=== PATIENT | female | born 1940 | race Caucasian/White ===

== ENCOUNTER 2019-09-11 08:14 | Outpatient (CLI) | payer MEDICARE, SELFPAY ==
--- NOTE | ~2019-09-11 | MM_ITS ---
EXAMINATION: MM screening dunia BI w daylin HISTORY: Screening mammogram TECHNIQUE: Craniocaudal and mediolateral oblique 3-D tomosynthesis images were obtained and synthetic 2-D images were generated. CAD analysis was submitted and interpreted. COMPARISON: A a the 08/25/2018, 08/19/2017, 08/15/2016 bilateral digital screening mammogram examination s BREAST PARENCHYMAL COMPOSITION: There are scattered areas of fibroglandular density. FINDINGS: .. There is no evidence of suspicious mass, calcification, or architectural distortion to s uggest malignancy in either breast. There has been no suspicious interval change. IMPRESSION: 1. No mammographic evidence of malignancy. 2. Recommend routine screening mammography in one year. BI-RADS Category 1: Negative Reviewed, dictated and finalized at location A.
== END 2019-09-11 08:15 | disposition home or self-care (01) ==
PROVIDERS: PCP Family Medicine; Visit Provider Student in an Organized Health Care Education/Training Program
DX: Z12.31 Encounter for screening mammogram for malignant neoplasm of breast (principal)
CPT/HCPCS: 77063; 77067

== ENCOUNTER 2020-09-13 09:25 | Outpatient (CLI) | payer MEDICARE, SELFPAY ==
--- NOTE | ~2020-09-13 | MM_ITS ---
EXAMINATION: MM screening dunia BI w daylin HISTORY: Screening mammogram TECHNIQUE: Craniocaudal and mediolateral oblique 3-D tomosynthesis images were obtained and synthetic 2-D images were generated. CAD analysis was submitted and interpreted. COMPARISON: 09/23/2019, 08/25/2018, 08/19/2017 bilateral digital screening mammogram examinations BREAST PARENCHYMAL COMPOSITION: There are scattered areas of fibroglandular density. FINDINGS: There is no evidence of suspicious mass, calcification, or architectural distortion to sugg est malignancy in either breast. There has been no suspicious interval change. IMPRESSION: 1. No mammographic evidence of malignancy. 2. Recommend routine screening mammography in one year. BI-RADS Category 1: Negative Reviewed, dictated and finalized at location A.
== END 2020-09-13 09:26 | disposition home or self-care (01) ==
LOC: ANHIMG 09:32
PROVIDERS: PCP Family Medicine; Visit Provider Student in an Organized Health Care Education/Training Program
DX: Z12.31 Encounter for screening mammogram for malignant neoplasm of breast (principal)
CPT/HCPCS: 77063; 77067

== ENCOUNTER → 2020-10-10 13:12 | Outpatient (CLI) | payer MEDICARE, SELFPAY ==
--- NOTE | ~2020-10-10 | XR_ITS ---
EXAMINATION: XR shoulder LT min 2V DATE: 10/10/2020 14:24 INDICATION: Left shoulder pain. TECHNIQUE: 4 views of left shoulder were obtained. COMPARISON: None. FINDINGS: Bone alignment is normal. No fracture. There is mild osteoarthritis of glenohumeral joint a nd severe osteoarthritis of acromioclavicular joint. IMPRESSION: 1. Polyarticular osteoarthritis. Reviewed, dictated and finalized at location A.
== END ==
PROVIDERS: PCP Family Medicine; Visit Provider Family Medicine
DX: M25.511 Pain in right shoulder (principal); M19.012 Primary osteoarthritis, left shoulder
CPT/HCPCS: 73030

== ENCOUNTER → 2020-12-15 11:44 | Outpatient (CLI) | payer MEDICARE, SELFPAY ==
--- NOTE | ~2020-12-15 | XR_ITS ---
XR hip LT min 3V w AP pelvis DATE: 12/15/2020 12:10 INDICATION: Left hip pain TECHNIQUE: AP pelvis. AP and lateral views of left hip. COMPARISON: None FINDINGS: Diffuse osteopenia. No pelvic fracture or bone destruction is detected. The pubic symphysis and sacroiliac joints are intact. No fracture, dislocation, avascular necrosis or bone destruction of the left hip is detected. Prominent degenerative disc disease at L4-5 and L5-S1. IMPRESSION: Degenerative disc disease at L4-5 and L5-S1 Osteopenia Reviewed, dictated and finalized at location A.
== END ==
PROVIDERS: PCP Family Medicine; Visit Provider Physician Assistant
DX: M85.852 Other specified disorders of bone density and structure, left thigh (principal); M47.817 Spondylosis without myelopathy or radiculopathy, lumbosacral region
CPT/HCPCS: 73502

== ENCOUNTER 2021-01-05 11:54 | Outpatient (CLI) | payer MEDICARE, SELFPAY ==
--- NOTE | ~2021-01-05 | XR_ITS ---
EXAMINATION: XR ankle LT min 3V, XR tibia fibula LT 2V DATE: 01/05/2021 12:22 INDICATION: Left lower leg and ankle pain and bruising post fall TECHNIQUE: 1. Anteroposterior and lateral views of the left tibia and fibula were obtained. 2. Anteroposterior, oblique, mortise, and lateral views of the left ankle were obtained. COMPARISON: None. FINDINGS: Alignment is normal from the left knee through the left foot. No fracture. Peripheral joint spaces ap pear relatively preserved. There is some cortical irregularity along the articular surface of the pat lenny suggesting overlying high-grade chondromalacia. Moderate-sized Achilles and plantar calcaneal sp urs with small enthesophyte at the proximal pole of the patella. No left knee or ankle joint effusion . Mild soft tissue swelling about the medial aspect of the distal calf and medial malleolus. IMPRESSION: 1. No acute osseous abnormality at the left lower leg, foot or ankle. Reviewed, dictated and finalized at location A. IMPRESSION: 1. No acute osseous abnormality at the left lower leg, foot or ankle.
== END 2021-01-05 11:55 | disposition home or self-care (01) ==
LOC: ANHIMG 11:56
PROVIDERS: PCP Family Medicine; Visit Provider Physician Assistant
DX: M79.605 Pain in left leg (principal); Z91.81 History of falling
CPT/HCPCS: 73590; 73610

== ENCOUNTER 2021-01-23 12:51 | Outpatient (CLI) | payer MEDICARE, SELFPAY ==
--- NOTE | 2021-01-23 17:03 | WPDPFTINT ---
PFT Procedure Performed PFT Procedure Performed Plethysmography (Lung Vol) Diffusing Cap (DLCO) Flow Vol Loop Spirometry w/o Bronchodil PFT Interpretation This is a pulmonary function test with spirometry, plethysmography and diffusing capacity. The test was performed and results interpreted in accordance with the 2019 and 2005 ATS/ERS Task Force guidelines respectively using the Global Lung Function Initiative-2012 reference equations. Patient demonstrated good effort and cooperation. Reproducibility criteria were met. The quality of the spirometry maneuver was Grade A. Findings: Spirometry: There is decreased maximal expiratory airflow at low lung volumes with concave expiratory flow tracing. The contour of the inspiratory tracing is normal. The FVC is 1.94, 74% predicted. The FEV1 is 1.33 L, 67% predicted. The FEV1: FVC ratio 69%. Plethysmography: The total lung capacity is 4.45 L 8, 88% predicted. The functional residual capacity is 2.81 L, 96% predicted. The residual volume is 2.29 L, 97% predicted. Diffusing capacity: The absolute diffusion capacity is 13.3, 68 point % predicted. The diffusing capacity corrected for alveolar volume is 4.09, 98% predicted. Impression: There is a mild obstructive abnormality. The lung volumes are normal. The diffusing capacity is normal. There are no prior studies for comparison
== END 2021-01-23 12:52 | disposition home or self-care (01) ==
PROVIDERS: PCP Family Medicine; Visit Provider Specialist
DX: I48.0 Paroxysmal atrial fibrillation (principal)
CPT/HCPCS: 94375; 94726; 94729

== ENCOUNTER 2021-02-14 12:47 | Outpatient (CLI) | payer MEDICARE, SELFPAY ==
--- NOTE | ~2021-02-14 | DEXA_ITS ---
Bone Density Report Name: Kala Multani Age: 80 Sex: Female Ethnicity: White Date of : 1940 Indication: osteopenia; height loss; hysterectomy;potmenopausal Referring Provider: Gurdeep Franklin Study: Bone densitometry was performed. Exam Date: February 14, 2021 Accession number: [id number] Bone Density: Region BMD T-score Z-score Classification AP Spine (L1, L2, L3) 0.813 -1.9 0.7 Osteopenia Femoral Neck (Left) 0.696 -1.4 0.8 Osteopenia Total Hip (Left) 0.865 -0.6 1.3 Normal Total Hip Bilateral Avg 0.826 -1.0 1.0 Osteopenia Femoral Neck (Right) 0.707 -1.3 0.9 Osteopenia Total Hip (Right) 0.785 -1.3 0.7 Osteopenia World Health Organization criteria for BMD impression classify patients as: Normal (T-score at or above -1.0), Osteopenia (T-score between -1.0 and -2.5), or Osteoporosis (T-score at or below -2.5). 10-year Fracture Risk(1): Major Osteoporotic Fracture 12% Hip Fracture 2.6% Reported Risk Factors: [place] (), Neck BMD=0.696, BMI=28.3 (1) FRAX(R) Version 3.08. Fracture probability calculated for an untreated patient. Fracture probability may be lower if the patient has received treatment. Previous Exams: Region Exam Age BMD T-score BMD Change BMD Change Date g/cm2 vs Baseline vs Previous AP Spine(L1, L2, L3) 02/14/2021 80 0.813 -1.9 -0.025(-3.0%)# 0.044(5.7%)* 10/21/2017 76 0.769 -2.3 -0.069(-8.3%)# 0.000(0.0%) 10/19/2014 73 0.769 -2.3 -0.069(-8.3%)# 0.000(0.0%)# 06/25/2012 71 0.770 -2.3 -0.069(-8.2%)# -0.019(-2.5%)# 03/09/2010 69 0.789 -2.1 -0.050(-5.9%)* -0.055(-6.5%)* 03/04/2008 67 0.844 -1.6 0.005(0.6%) 0.075(9.7%)* 01/04/2006 65 0.769 -2.3 -0.070(-8.3%)* 0.002(0.3%) 10/19/2004 63 0.766 -2.3 -0.072(-8.6%)* -0.072(-8.6%)* 11/02/2002 61 0.839 -1.6 Total Hip(Left) 02/14/2021 80 0.865 -0.6 -0.052(-5.7%)# -0.022(-2.5%) 10/21/2017 76 0.888 -0.4 -0.030(-3.3%)# -0.026(-2.8%) 10/19/2014 73 0.914 -0.2 -0.004(-0.4%)# -0.005(-0.5%)# 06/25/2012 71 0.918 -0.2 0.001(0.1%)# -0.010(-1.1%)# 03/09/2010 69 0.928 -0.1 0.011(1.2%) -0.002(-0.3%) 03/04/2008 67 0.931 -0.1 0.013(1.4%) -0.027(-2.8%)* 01/04/2006 65 0.958 0.1 0.040(4.4%)* 0.012(1.3%) 10/19/2004 63 0.946 0.0 0.028(3.1%)* 0.028(3.1%)* 11/02/2002 61 0.918 -0.2 Total Hip(Right) 02/14/2021 80 0.785 -1.3 -0.127(-13.9%) -0.051(-6.1%)* 10/21/2017 76 0.836 -0.9 -0.076(-8.3%)# -0.014(-1.7%) 10/19/2014 73 0.850 -0.8 -0.061(-6.7%)# -0.043(-4.8%)# 06/25/2012 71 0.893 -0.4 -0.018(-2.0%)# -0.007(-0.8%)# 11
== END 2021-02-14 12:48 | disposition home or self-care (01) ==
LOC: ANHIMG 12:51
PROVIDERS: PCP Family Medicine; Visit Provider Physician Assistant
DX: M85.89 Other specified disorders of bone density and structure, multiple sites (principal)
CPT/HCPCS: 77080

== ENCOUNTER 2021-02-14 15:08 | Outpatient (RCR) | payer MEDICARE, SELFPAY ==
--- NOTE | 2021-02-14 16:19 | PTOPEVAL ---
PHYSICAL THERAPY EVALUATION/ DISCHARGE REPORT 02-14-21 Thank you for referring Kala Multani to [facility]. The evaluation was completed today. She was instructed and is independent in a home exercise program. Further PT is not indicated for pt. Jacque agreed to discharge from PT services. ?Please review, sign, date and return this evaluation/ discharge SERVANDO. I agree with and certify that the following plan of care is medically necessary. Referring Physician Date Attending Provider: Gurdeep Franklin PA-C PT Outpatient Evaluation Document 02/14/21 15:30 TSERING (Rec: 02/14/21 16:19 TSERING [id number]) Outpatient Past Medical History Past Medical History Source of Past Medical History Patient Neurological History Hx Neurological Disorders No Significant History Cardiovascular History Hx Hypercholesterolemia Yes: meds Hx Hypertension Yes: meds Respiratory History Hx Respiratory Disorders No Significant History Gastrointestinal History Hx Gastrointestinal Disorders No Significant History Musculoskeletal History Hx Musculoskeletal Disorders No Significant History Endocrine History Hx Endocrine Disorders No Significant History HEENT History Hx Cataracts Yes: monitoring, some vision change Hx Other HEENT Disorders Yes: wear glasses/last eye exam 1 yr ago;report hearing decreased Evaluation Information Problem Diagnosis gait instability, falls, L LE pain Onset about 6 months ago Subjective Information in the past 6 months have Query Text:As Reported By Patient/ fallen 3x- tripped over rug Family and on way to bathroom, hit L shoulder; at son's pushing chair under table, caught rug and fell onto L hip; fell down stairs and banged up L hartmann, bruised and hematoma; Prior Level of Function Activity Level (Last 3 Months) Occupation retired Activity of Daily Living Ability Independent Indoor/Home Mobility Independent Community Mobility Independent Stairs Ability Independent Functional Cognition (Planning, Shopping Independent , Taking Medications) Cooking Yes Cleaning Yes Laundry Yes Shopping Yes Driving Yes Home Setting Home Type House,Multiple Levels Environmental Barriers Stairs, Greater than 4 Living Situation With Spouse Mobility Assistive Devices (Used Last 3 None Months)
== END 2021-05-01 10:31 | disposition home or self-care (01) ==
LOC: ANHPT 15:08
PROVIDERS: PCP Family Medicine; Visit Provider Physician Assistant
DX: R26.89 Other abnormalities of gait and mobility (principal); M79.605 Pain in left leg; W19.XXXA Unspecified fall, initial encounter
CPT/HCPCS: 97161

== ENCOUNTER 2021-12-09 07:31 | Outpatient (CLI) | payer MEDICARE, SELFPAY ==
--- NOTE | ~2021-12-09 | MM_ITS ---
EXAMINATION: MM screening dunia BI w daylin HISTORY: Screening mammogram, family history of breast cancer in her mother and daughter. TECHNIQUE: Craniocaudal and mediolateral oblique 3-D tomosynthesis images were obtained and synthetic 2-D images were generated. CAD analysis was submitted and interpreted. COMPARISON: 09/13/2020, 09/11/2019 BREAST PARENCHYMAL COMPOSITION: The breasts are heterogeneously dense, which may obscure small masses . FINDINGS: There is no suspicious mass, calcification, or architectural distortion to suggest malignan cy in either breast. There has been no suspicious interval change. IMPRESSION: 1. No mammographic evidence of malignancy. 2. Recommend routine screening mammography in one year. BI-RADS Category 1: Negative Reviewed, dictated and finalized at location A.
== END 2021-12-09 07:32 | disposition home or self-care (01) ==
PROVIDERS: PCP Family Medicine; Visit Provider Family Medicine
DX: Z12.31 Encounter for screening mammogram for malignant neoplasm of breast (principal)
CPT/HCPCS: 77063; 77067

== ENCOUNTER 2022-09-05 11:04 | Outpatient (CLI) | payer MEDICARE, SELFPAY ==
[2022-09-05 12:26] LABS: SARS-CoV-2 RNA PCR Negative (Negative)
== END 2022-09-05 11:05 | disposition home or self-care (01) ==
PROVIDERS: PCP Family Medicine; Visit Provider Physician Assistant
DX: R05.9 Cough, unspecified (principal); Z20.822 Contact with and (suspected) exposure to COVID-19
CPT/HCPCS: U0003; U0005

== ENCOUNTER 2022-11-05 14:05 | Outpatient (CLI) | payer MEDICARE, SELFPAY ==
[2022-11-05 15:28] LABS: SARS-CoV-2 RNA PCR Negative (Negative)
== END 2022-11-05 14:06 | disposition home or self-care (01) ==
LOC: ANHLAB 14:07
PROVIDERS: PCP Family Medicine; Visit Provider Physician Assistant
DX: R50.9 Fever, unspecified (principal); Z20.822 Contact with and (suspected) exposure to COVID-19
CPT/HCPCS: 87635

== ENCOUNTER 2022-11-07 10:52 | Outpatient (CLI) | payer MEDICARE, SELFPAY ==
--- NOTE | ~2022-11-07 | XR_ITS ---
EXAMINATION: XR chest 2V DATE: 11/07/2022 12:13 INDICATION: Cough and shortness of breath. Wheezing. TECHNIQUE: Frontal and lateral views of the chest were obtained. COMPARISON: Chest 2 views 12/10/2018, chest CT 12/10/2018 FINDINGS: There are airspace opacities in right lung upper lobe, consistent with pneumonia. There is a small right pleural effusion. No pneumothorax. The heart size is normal. IMPRESSION: 1. Right upper lobe pneumonia. 2. Small right pleural effusion. Reviewed, dictated and finalized at location A.
[2022-11-07 11:50] LABS: Basophils Percent Auto 0.3 % (0.2-1.2); Eosinophils Percent Auto 0.5 % (0-4.4); Hematocrit 43.8 % (37.0-47.0); Hemoglobin 14.5 g/dL (12.0-15.0); Immature Granulocyte Absolute 0.04 K/mm3 (0.00-0.031); Immature Granulocyte Percent A 0.5 % (0-0.5); Lymphocytes Absolute Auto 0.72 K/mm3 (0.9-3.2); Lymphocytes Percent Auto 9.3 % (18.3-44.2); Mean Corpuscular HGB Conc 33.1 g/dl (32-36); Mean Corpuscular Volume 93.6 fl (80-100); Mean Platelet Volume 9.5 fl (7.4-10.4); Monocytes Absolute Auto 1.3 K/mm3 (0.1-0.6); Monocytes Percent Auto 16.5 % (2.6-8.5); Neutrophils Absolute Auto 5.6 K/mm3 (1.3-6.7); Neutrophils Percent Auto 72.9 % (45.5-73.1); Platelet Count Result 245 k/mm3 (150-375); Red Blood Count 4.68 M/mm3 (4.2-5.4); Red Cell Distribution Width 13.9 % (11.5-14.5); White Blood Count 7.7 K/mm3 (4.5-10.0)
[2022-11-07 11:52] LABS: Alanine Aminotransferase 76 U/L (6-35); Albumin Level 3.8 g/dL (3.5-5.1); Alkaline Phosphatase 77 U/L (38-126); Anion Gap 6 mmol/L (8-16); Aspartate Amino Transferase 71 U/L (14-36); Bilirubin,Total 0.8 mg/dL (0.2-1.3); Blood Urea Nitrogen 25 mg/dL (7-17); Calcium 8.9 mg/dL (8.4-10.2); Carbon Dioxide 34 mmol/L (22-30); Chloride 94 mmol/L (98-107); Estimated Glomerular Filt Rate 33; Glucose 128 mg/dL (65-110); Potassium 3.3 mmol/L (3.4-5.0); Sodium 134 mmol/L (137-145)
[2022-11-07 13:03] LABS: Appearance Urine Clear (Clear); Bacteria Urine None Seen /hpf; Bilirubin Urine Negative (Negative); Blood Urine 1+ (Negative); Color Urine Yellow (Yellow); Glucose Urine UA Negative (Negative); Ketones Urine Negative (Negative); Leukocyte Esterase Ur 1+ LEU/UL (NEGATIVE); Need Manual Microscopic Reviewed; Nitrate Urine Negative (Negative); Protein Urine Trace mg/dL (Negative); Specific Grav Ur 1.014 (1.001-1.035); Squamous Epithelial Cell Urine Few /hpf (Few); Transitional Epi Cells Urine Present /hpf (None Seen); Urobilinogen Urine 0.2 mg/dL (<2.0); WBC Urine 0-5 /hpf (0-3)
[2022-11-07 13:08] LABS: Add Urine Microscopic? YES
== END 2022-11-07 10:53 | disposition home or self-care (01) ==
PROVIDERS: PCP Family Medicine; Visit Provider Family Medicine
DX: R50.9 Fever, unspecified (principal); R05.9 Cough, unspecified; J18.9 Pneumonia, unspecified organism; J90 Pleural effusion, not elsewhere classified
CPT/HCPCS: 36415; 71046; 80053; 81001; 85025

== ENCOUNTER → 2022-12-12 09:49 | Outpatient (CLI) | payer MEDICARE, SELFPAY ==
--- NOTE | ~2022-12-12 | XR_ITS ---
Clinical Indication: Cough PA and lateral views of the chest: Comparison: 11/07/2022 Findings: The lungs are clear, without evidence of focal consolidation or pleural effusion. Cardiome diastinal silhouette is within normal limits. Bones and soft tissues are unremarkable. Impression: Normal chest. Reviewed, dictated and finalized at location . Impression: Normal chest.
== END ==
PROVIDERS: PCP Family Medicine; Visit Provider Family Medicine
DX: R05.9 Cough, unspecified (principal)
CPT/HCPCS: 71046

== ENCOUNTER 2022-12-20 09:40 | Outpatient (CLI) | payer MEDICARE, SELFPAY ==
--- NOTE | ~2022-12-20 | XR_ITS ---
EXAMINATION: XR barium swallow modified DATE: 12/20/2022 10:16 INDICATION: Coughing and choking. TECHNIQUE: The patient was given barium-containing material of multiple consistencies to swallow by t phyllis speech pathologist while I performed fluoroscopy. Fluoroscopy exposure time was 0.6 minutes. The n umber of fluoroscopy images saved to the PACS was 1. Dose-area product was 0.412 Gy-cm^2. FINDINGS: The oral stage, pharyngeal stage, and cervical/esophageal stage of the swallow are normal. IMPRESSION: 1. Normal modified barium swallow. 2. Please refer to the speech therapy report for recommendations. Reviewed, dictated and finalized at location A.
--- NOTE | 2022-12-20 10:35 | REHSTMBS ---
Assessment and note entered by Hannah Damon, STOCK DIGGER Modified Barium Swallow Evaluation ST Clinical Summary MODIFIED BARIUM SWALLOW STUDY This patient was seen for a Modified Barium Swallow study at the request of her physician. Patient reports that she does occasionally cough and/or choke on food, liquid, and even her own saliva, randomly and occasionally. She does report frequent throat clearing; denies significant allergy issues and denies history of reflux. Patient admitted to having pneumonia one month ago and wondered if the pneumonia was caused by aspiration of food/liquid. Patient was viewed in the lateral position to the level of C5/C6. Patient was presented with one teaspoon of thin liquid contrast medium, and then uncontrolled liquid contrast medium per cup and also per straw, pudding mixed with semi-solid contrast medium, and then a large piece of mare cracker coated with the semi-solid mixture. On each presentation oral and pharyngeal stage movements were judged to be within normal limits with no unusual observations of significant pharyngeal pooling or residue after the swallow, and no evidence of penetration/aspiration. Of note, patient cleared her throat throughout this evaluation in spite of no evidence of significant pharyngeal residue and lack of penetration of material into the airway. Patient was instructed in the use of head flexion to facilitate the prevention of random choking/ coughing episodes. She is referred back to her physician for further assessment of her complaint of frequent throat clearing. Thank you for this referral.
== END 2022-12-20 09:41 | disposition home or self-care (01) ==
PROVIDERS: PCP Family Medicine; Visit Provider Family Medicine
DX: R05.9 Cough, unspecified (principal)
CPT/HCPCS: 92611

== ENCOUNTER 2022-12-25 10:06 | Outpatient (CLI) | payer MEDICARE, SELFPAY ==
--- NOTE | ~2022-12-25 | MM_ITS ---
EXAMINATION: MM screening dunia BI w daylin HISTORY: Screening mammogram TECHNIQUE: Craniocaudal and mediolateral oblique 3-D tomosynthesis images were obtained and synthetic 2-D images were generated. CAD analysis was submitted and interpreted. COMPARISON: 12/09/2021, 09/13/2020, 09/09/2019 bilateral screening mammogram examinations BREAST PARENCHYMAL COMPOSITION: There are scattered areas of fibroglandular density. FINDINGS: There is no evidence of suspicious mass, calcification, or architectural distortion to sugg est malignancy in either breast. There has been no suspicious interval change. IMPRESSION: 1. No mammographic evidence of malignancy. 2. Recommend routine screening mammography in one year. BI-RADS Category 1: Negative Reviewed, dictated and finalized at location A.
== END 2022-12-25 10:07 | disposition home or self-care (01) ==
PROVIDERS: PCP Family Medicine; Visit Provider Family Medicine
DX: Z12.31 Encounter for screening mammogram for malignant neoplasm of breast (principal)
CPT/HCPCS: 77063; 77067

== ENCOUNTER 2023-03-30 10:35 | Emergency (ER) | payer MEDICARE, SELFPAY ==
[2023-03-30 10:40] VITALS: BP 152/64; PULSE 52; RESP 16; TEMP 36.2; O2SAT 100
--- NOTE | 2023-03-30 10:45 | ED.SKABFB ---
HPI - Skin/Abscess/Foreign Bdy General Chief complaint: Skin/Abscess/Foreign Body Stated complaint: shingles Time Seen by Provider: 03/30/23 10:45 Source: patient, RN notes reviewed and old records reviewed Mode of arrival: ambulatory Limitations: no limitations History of Present Illness HPI narrative: 82-year-old female presents to the [facility] with complaints of shingles to the right lower lateral ribcage that started 2 days ago. Patient has a history of stage 3 kidney disease with a GFR of 33 back in November. Onset (ago): day(s) (2) Treatments prior to arrival: other (Tylenol and has been placing Aquaphor) Related Data Home Medications Medication Instructions Recorded Confirmed calcium carbonate 600 mg-vitamin 1 cap PO DAILY 04/16/19 03/30/23 D3 12.5 mcg (500 unit) capsule (Calcium 600 with Vitamin D3) amiodarone 200 mg tablet 200 mg PO DAILY 07/07/20 03/30/23 rivaroxaban 20 mg tablet (Xarelto) 20 mg PO DAILY 07/07/20 03/30/23 Allergies Allergy/AdvReac Type Severity Reaction Status Date / Time doxycycline AdvReac Unknown Gastrointestinal Verified 03/30/23 10:51 Upset Review of Systems Review of Systems: All systems reviewed & are unremarkable except as noted in HPI and below Constitutional: Constitutional: Reports no additional constitutional complaints Eyes: Eyes: Reports no additional eye complaints ENT: Reports system reviewed and no additional complaints, except as documented Cardiovascular: Cardiovascular: Reports no additional cardiovascular complaints, Denies chest pain and Denies dyspnea Respiratory: Respiratory: Reports no additional respiratory complaints, Denies chest congestion, Denies cough and Denies dyspnea Gastrointestinal: Gastrointestinal: Reports no additional gastrointestinal complaints, Denies abdominal pain, Denies nausea and Denies vomiting Musculoskeletal: Musculoskeletal: Reports no additional musculoskeletal complaints Integumentary/Breasts: Skin/Breast: Reports as per HPI and Reports rash Neurologic: Reports system reviewed and no additional complaints, except as documented Psychiatric: Psychiatric: Reports no additional psychiatric complaints Allergic/Immunologic: Allergic/Immunologic: Reports no additional allergic/immunologic complaints PMFSH Past Medical History Medical History Acute rhinosinusitis History of vaginal delivery x 3 Hy kid 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 Trigeminal neuralgia of right side of face Surgical History Surgical History History of dilation and curettage History of endometrial ablation History of total hysterectomy Family History Family History Sibling Diabetes mellitus Father Hypertension Family history of cardiovascular disease Mother Family history of malignant neoplasm of breast in first degree relative Other Family history of arthritis Family history of heart disease in male family member before age 55 Family history of malignant neoplasm of breast Social History Social History Social History: Smoking status: Never smoker Second hand tobacco smoke exposure: No Alcohol intake: never Substance use: never Substance use type: does not use Living arrangements: with family Occupation/Education: retired Gender identity (if verbalized by the patient): Female Sexual Orientation (if Verbalized by the Patient): Straight or Heterosexual Spiritual care concerns: No Comments At the time of my signature, I reviewed and agree with the nursing past medical, surgical, social, and family history. There is no relevant family history pertinent to the patient complaint. Exam Const: General: cooperative, healthy appearing, comfortable, no acute distress, well developed, alert and well nourished
[2023-03-30 10:50] VITALS: BP 152/64; PULSE 52; RESP 16; TEMP 36.2; O2SAT 100
== END 2023-03-30 10:55 | disposition home or self-care (01) ==
PROVIDERS: Emergency Provider Nurse Practitioner; PCP Family Medicine
DX: B02.9 Zoster without complications (principal); Z79.01 Long term (current) use of anticoagulants; Z79.899 Other long term (current) drug therapy
CPT/HCPCS: 99211; G0463

== ENCOUNTER 2023-05-19 16:50 | Emergency (ER) | payer MEDICARE, SELFPAY ==
--- NOTE | ~2023-05-19 | CT_ITS ---
CT head without contrast Indication: Status post fall Technique: Serial scans were obtained through the brain without the administration of contrast. Dose reduction technique was used on this scan by utilizing automated exposure control and iterative recon struction technique. The dose-length product (DLP) was 605.33 mGy-cm. Findings: There is no evidence of intracranial hemorrhage, mass lesion, or acute infarct. The ventri cles and subarachnoid spaces are dilated, consistent with mild atrophy. Low attenuation regions are seen within the periventricular white matter bilaterally, likely representing changes from chronic mi crovascular ischemic disease. There is no evidence of edema, mass effect or midline shift. The visu alized paranasal sinuses and mastoid air cells are clear. There is soft tissue swelling at the high r ight parietal scalp. Impression: No intracranial hemorrhage, mass, or acute infarct. Atrophy and chronic white matter changes, as above. Reviewed, dictated and finalized at [facility]. UTER SECURITY COORDINATOR Impression: No intracranial hemorrhage, mass, or acute infarct. Atrophy and chronic white matter changes, as above.
--- NOTE | ~2023-05-19 | CT_ITS ---
Noncontrast CT scan of the cervical spine Technique: Multiple contiguous axial [address] images of the cervical spine were obtained and rec onstructed in 2D sagittal and coronal planes on the acquisition scanner. Dose reduction technique was used on this scan by utilizing automated exposure control, adjustment of the mA and/or kV according to patient size. The dose-length product (DLP) was 291.86 mGy-cm. Clinical History: Pain Findings: No fractures or dislocations. There is right neural foraminal narrowing with right facet a rthropathy C5-C6. There are additional scattered mild facet joint degenerative changes in the cervica l spine. No prevertebral soft tissue swelling. Impression: No fracture or subluxation of the cervical spine. Reviewed, dictated and finalized at [facility]. NTIFIC INFORMATICS ANALYST Impression: No fracture or subluxation of the cervical spine.
[2023-05-19 16:56] VITALS: BP 169/64; PULSE 54; RESP 16; TEMP 36.9; O2SAT 96
--- NOTE | 2023-05-19 17:30 | ED.FALL ---
HPI - Fall General Chief Complaint: Fall Stated Complaint: fall Time Seen by Provider: 05/19/23 17:03 History of Present Illness HPI Narrative: 82-year-old female presenting to the emergency department for evaluation after having a fall and subsequent head injury. Patient states that she tripped on some steps in her garage. Patient did fall strike her head but had no loss of consciousness. Related Data Home Medications Medication Instructions Recorded Confirmed calcium carbonate 600 mg-vitamin 1 cap PO DAILY 04/16/19 05/19/23 D3 12.5 mcg (500 unit) capsule (Calcium 600 with Vitamin D3) amiodarone 200 mg tablet 200 mg PO DAILY 07/07/20 05/19/23 rivaroxaban 20 mg tablet (Xarelto) 20 mg PO DAILY 07/07/20 05/19/23 Allergies Allergy/AdvReac Type Severity Reaction Status Date / Time doxycycline AdvReac Unknown Gastrointestinal Verified 05/13/23 13:04 Upset Review of Systems Review of Systems: All systems reviewed & are unremarkable except as noted in HPI and below PMFSH Past Medical History Medical History (Updated 05/20/23 @ 00:00 by Hilary Perez) Acute rhinosinusitis History of vaginal delivery x 3 Hy kid 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 Trigeminal neuralgia of right side of face Surgical History Surgical History History of dilation and curettage History of endometrial ablation History of total hysterectomy Family History Family History Sibling Diabetes mellitus Father Hypertension Family history of cardiovascular disease Mother Family history of malignant neoplasm of breast in first degree relative Other Family history of arthritis Family history of heart disease in male family member before age 55 Family history of malignant neoplasm of breast Social History Social History Social History: Smoking status: Never smoker Second hand tobacco smoke exposure: No Alcohol intake: never Substance use: never Substance use type: does not use Living arrangements: with family Occupation/Education: retired Gender identity (if verbalized by the patient): Female Sexual Orientation (if Verbalized by the Patient): Straight or Heterosexual Spiritual care concerns: No Exam Narrative: APPEARANCE: Well appearing, no pain, no distress, well-nourished. HEAD: normocephalic, contusion to posterior right scalp, no laceration. EYES: PERRLA/EOMI, conjunctivae clear. NOSE: Normal no drainage NECK: Supple. No adenopathy, no masses. RESPIRATORY: Airway patent, respirations nonlabored. Clear to auscultation bilaterally, no rales, rhonchi, wheezing. CARDIOVASCULAR: Regular rate and rhythm without murmurs rubs or gallops. ABDOMINAL: Soft, nontender, nondistended, normal bowel sounds MUSCULOSKELETAL: Moves all extremities. Strength/ROM intact, No edema, No calf tenderness. NEURO: Alert. Cranial nerves II through XII intact. Grossly intact SKIN: Warm, dry. Normal Color Course Course Emergency Course: 82-year-old female presenting to the emergency department for evaluation after head injury. CT brain and cervical spine were negative. Patient and family were updated on the results of the workup. All questions concerns were addressed. Vital Signs Vital signs: Vital Signs Temperature 98.5 F 05/19/23 16:56 Pulse Rate 54 L 05/19/23 16:56 Respiratory Rate 16 05/19/23 16:56 Blood Pressure 169/64 H 05/19/23 16:56 Pulse Oximetry 96 05/19/23 16:56 Temperature 98.5 F 05/19/23 16:56 Pulse Rate 54 L 05/19/23 16:56 Respiratory Rate 16 05/19/23 16:56 Blood Pressure 169/64 H 05/19/23 16:56 Pulse Oximetry 96 05/19/23 16:56 MDM - Fall Differential Diagnosis Differential diagnosis: Likely other (Skull fracture, cervical spine fracture, subdural hematoma, subarachnoid hemorrhage, concussion)
== END 2023-05-19 18:44 | disposition home or self-care (01) ==
LOC: ANHED 18:08
PROVIDERS: Emergency Provider Emergency Medicine; PCP Family Medicine
DX: S00.03XA Contusion of scalp, initial encounter (principal); M54.2 Cervicalgia; I12.9 Hypertensive chronic kidney disease with stage 1 through stage 4 chronic kidney disease, or unspecified chronic kidney disease; N18.9 Chronic kidney disease, unspecified; Z90.710 Acquired absence of both cervix and uterus; Z79.01 Long term (current) use of anticoagulants; W10.9XXA Fall (on) (from) unspecified stairs and steps, initial encounter
CPT/HCPCS: 70450; 72125; 99284

== ENCOUNTER 2023-05-31 07:27 | Outpatient (CLI) | payer MEDICARE, SELFPAY ==
[2023-05-31 09:08] LABS: Total Triiodothyronine (T3) 0.93 NG/ML (0.97-1.69)
[2023-05-31 09:20] LABS: Free T4 Free Thyroxine 2.13 ng/mL (0.78-2.19)
== END 2023-05-31 07:28 | disposition home or self-care (01) ==
LOC: ANHLAB 07:29
PROVIDERS: PCP Family Medicine; Visit Provider Physician Assistant
DX: R79.89 Other specified abnormal findings of blood chemistry (principal); I12.9 Hypertensive chronic kidney disease with stage 1 through stage 4 chronic kidney disease, or unspecified chronic kidney disease; N18.9 Chronic kidney disease, unspecified
CPT/HCPCS: 36415; 84439; 84443; 84480

== ENCOUNTER 2024-02-25 09:56 | Outpatient (CLI) | payer MEDICARE, SELFPAY ==
--- NOTE | ~2024-02-25 | MM_ITS ---
EXAMINATION: MM screening [place] BI w [place] HISTORY: Screening TECHNIQUE: Craniocaudal and mediolateral oblique 3-D tomosynthesis images were obtained and synthetic 2-D images were generated. CAD analysis was submitted and interpreted. COMPARISON: Comparison to multiple prior studies sequentially, with oldest reviewed study dated 08/19. BREAST PARENCHYMAL COMPOSITION: Dense: The breasts are heterogeneously dense, which may obscure small masses FINDINGS: There is no evidence of suspicious mass, calcification, or architectural distortion to sugg est malignancy in either breast. There has been no suspicious interval change. IMPRESSION: 1. No mammographic evidence of malignancy. 2. Recommend routine screening mammography in one year. BI-RADS Category 1: Negative Reviewed, dictated and finalized at location B.
== END 2024-02-25 09:57 | disposition home or self-care (01) ==
LOC: ANHIMG 09:57
PROVIDERS: PCP Family Medicine; Visit Provider Family Medicine
DX: Z12.31 Encounter for screening mammogram for malignant neoplasm of breast (principal)
CPT/HCPCS: 77063; 77067

== ENCOUNTER 2025-03-01 08:24 | Outpatient (CLI) | payer MEDICARE, SELFPAY ==
--- NOTE | ~2025-03-01 | MM_ITS ---
EXAMINATION: MM screening [facility] BI w [place] HISTORY: Screening TECHNIQUE: Craniocaudal and mediolateral oblique 3-D tomosynthesis images were obtained and synthetic 2-D images were generated. CAD analysis was submitted and interpreted. COMPARISON: Comparison to multiple prior studies sequentially, with oldest reviewed study dated 08/25/2018. BREAST PARENCHYMAL COMPOSITION: Not dense: There are scattered areas of fibroglandular density. FINDINGS: There is no evidence of suspicious mass, calcification, or architectural distortion to suggest malignancy in either breast. There has been no suspicious interval change. IMPRESSION: 1. No mammographic evidence of malignancy. 2. Recommend routine screening mammography in one year. BI-RADS Category 1: Negative Reviewed, dictated and finalized at location B.
--- OUTSIDE RECORDS SUMMARY | 2025-03-01 08:42 | XMS_ITS | Encounter Summary ---
Author Organization [facility] Address [address] [facility] [place] [address] Care Team Providers Care Rn Diabetes Educator Name Role Phone Ollie Ronquillo MD Primary Care Provider [phone] Encounter Details Date Type Department Care Team (Late st Contact Info) Description 08/14/2023 Lab Requisition [facility] - DermPath Lab [address] [facility] [place] [address] Noble Whitt MD [address] [place] [address] Social History Tobacco Use Types Packs/Day Years Used Date Smoking Tobacco: Never Assessed Comments Unknown Sex and Gender Information Value Date Recorded Sex Assigned at Not on file Legal Sex Female 6:21 AM NEWS PRODUCTION ASSISTANT Gender Identity Not on file Sexual Orientation Not on file documented as of this encounter Plan of Treatment Not on file documented as of this encounter Procedures Procedure Name Priority Date/Time Associated Diagnosis Comments DERMATOPATHOLOGY Routine 08/13/2023 3:33 AM CDT documented in this encounter Results * DERMATOPATHOLOGY (08/13/2023 3:33 AM CDT) Case Report Dermatopathology Report Case: [id number] Authorizing Provider: Noble Whitt MD Collected: 08/13/2023 03:33 AM Ordering Location: [facility] - Received: 08/15/2023 06:51 AM DermPath Lab Pathologist: Annita Tobias MD Specimen: Skin, left nose 1:19 PM CDT DERMATOPATHOLOGY LABORATORY Final Diagnosis Specimen A. SKIN, left nose: BASAL CELL CARCINOMA, INFILTRATIVE PATTERN (C44.311) 4 1:19 PM CDT DERMATOPATHOLOGY LABORATORY at 1319 CDT Clinical History R/O SCc vs BCC vs other Neoplasm 4 1:19 PM CDT DERMATOPATHOLOGY LABORATORY Gross Description Specimen A: Received is one formalin filled container labeled with the patient's name and designated left nose. The specimen consists of a shave biopsy measuring 5x5x1 mm. Jar 0. 1:19 PM CDT DERMATOPATHOLOGY LABORATORY Microscopic Description Specimen A. SKIN, left nose: Within the dermis there are nodular aggregates of basaloid cells associated with fibromyxoid stroma and epithelial-stromal clefts. At the advancing margin of the neoplasm, there are smaller angulated nests that infiltrate the dermis. 1:19 PM CDT DERMATOPATHOLOGY LABORATORY Disclaimer An external and internal positive and negative controls are appropriate for the histochemical, immunohistochemical and immunofluorescence stain(s) in this case (if any), except where stated explicitly. The performance characteristics of the stain(s) cited in this report were developed and its performance characteristic determined by the Dermatopathology Laboratory at [facility], directed by Dr. Jane Reeves. These tests need not be, and therefore are not, approved by the [place] Food and Drug Administration. The tests are used for clinical purposes. Billing Codes Specimen Charges Stain Charges 27148 1 4 1:19 PM CDT DERMATOPATHOLOGY LABORATORY Embedded Images 4 1:19 PM CDT DERMATOPATHOLOGY LABORATORY Pathology/Cytolo gy TISSUE SPECIMEN FROM SKIN / Unknown 08/13/2023 3:33 AM CDT 08/15/2023 6:51 AM CDT Noble Whitt MD LAB - PATHOLOGY/CYTOLOGY ORD ERABLES Final Result DERMATOPATHOLOGY LABORATORY [facility] - Department of Dermatology [address], [address] [phone] documented in this encounter Visit Diagnoses Not on filedocumented in this encounter Care Teams Rn Diabetes Educator Relationship Specialty Start Date End Date Ollie Ronquillo MD [address] [place] [address] PCP - General Family Medicine 09/11/23 documented as of this encounter
--- OUTSIDE RECORDS SUMMARY | 2025-03-01 08:42 | XMS_ITS | Clinical Summary ---
Author Organization [facility] [address] Address [address] [place] [address] Care Team Providers Care Immigration Case Worker Name Role Phone Ollie Ronquillo MD Primary Care Provider Allergies No known active allergies Medications calcium carbonate (CALCIUM 600) 1,500 mg (600 mg of elemental calcium) tablet take 2 by Oral route every day 0 03/06/2012 Active hydroCHLOROthia zide (HYDRODIURIL) 25 mg tablet Take 1 tablet (25 mg total) by mouth daily Active atorvastatin (LIPITOR) 20 mg tablet Take 1 tablet (20 mg total) by mouth daily Active losartan (COZAAR) 100 mg tablet Take 1 tablet (100 mg total) by mouth daily Active Xarelto 20 mg tablet TAKE 1 TABLET BY MOUTH EVERY DAY 90 tablet 2 07/03/2024 Active dilTIAZem XR 240 mg 24 hr capsule TAKE 1 CAPSULE BY MOUTH EVERY DAY 90 capsule 2 12/21/2024 Active Active Problems Problem Noted Date Diagnosed Date Coronary artery disease invo lving [place] coronary artery of [place] heart without angina pectoris 02/13/2017 History of coronary artery stent placement 02/13 Paroxysmal atrial fibrillation 02/13/2017 Medical History Medical History Date Comments Hypertension Hypertension Family History Medical History Relation Name Comments Heart attack Father 2 Myocardial Infa rction; Hypertension Father 2 Hypertension; Relation Name Status Comments Father 1 Alive Father 2 Social History Tobacco Use Types Packs/Day Years Used Date Smoking Tobacco: Never Smokeless Tobacco: Never Tobacco Cessation:Counseling Given: Not Answered Alcohol Use Standard Drinks/Week Comments Yes 0 (1 standard drink = 0.6 oz pur e alcohol) Comments Unknown Sex and Gender Information Value Date Recorded Sex Assigned at Not on file Legal Sex Female 2:24 AM STAFF DEVELOPMENT COORDINATOR Gender Identity Female 02/17/2020 5:00 PM CDT Sexual Orientation Straight 02/17/2020 5: 00 PM CDT Obstetrics History Last Filed Vital Signs Vital Sign Reading Time Taken Comments Blood Pressure 120/58 09/21/2024 1:45 PM CDT Pulse 98 09/21/2024 1:45 PM CDT Temperature 36.7 C (98.1 F) 04/10/2023 7:06 PM STAFF DEVELOPMENT COORDINATOR Respiratory Rate 18 04/10/2023 7:06 PM STAFF DEVELOPMENT COORDINATOR Oxygen Saturation 93% 09/21/2024 1:45 PM CDT Inhaled Oxygen Concentration - - Weight 74.9 kg (165 lb 3.2 oz) 09/21/2024 1:45 P M CDT Height 162.6 cm (5' 4) 09/21/2024 1:45 PM CDT Body Mass Index 28.36 09/21/2024 1:45 PM CDT Plan of Treatment Health Maintenance Due Date Last Done Comments Depression Screening 1942 Fall Risk Assessment 1942 Osteoporosis Screening-Bone Density Scan 1942 DTaP/Tdap/Td Vaccine (1 - Tdap) 1953 Hepatitis B Screening 1960 Zoster Vaccine (1 of 2) 1992 Well Visit 65+ 12/15/2007 Influenza Vaccine (#1) 2025 7, 02/29/2016, 02/11/2015 Pneumococcal vaccine 65+ Completed 05/29/2017, 1205/2015 Insurance AETNA MEDICARE AETNA MEDICARE Care Teams Immigration Case Worker Relationship Specialty Start Date End Date Ollie Ronquillo MD [address] [facility] [address] [place] [address] PCP - General Family Medicine 02/27/18
--- OUTSIDE RECORDS SUMMARY | 2025-03-01 08:42 | XMS_ITS | Clinical Summary ---
Author Organization [facility] Address [address] [facility] [place] [address] Care Team Providers Care Apprentice Cosmetologist Name Role Phone Ollie Ronquillo MD Primary Care Provider [phone] Source Comments [facility],non-owned Affiliates and Associated Physician Practices is amultiple site organization consisting of ambulatory clinics and hospital sitesin [place], [place], [place] and [place]. This disclosure is being madepursuant to the Care Everywhere program and may not contain all information available regarding this patient. Last updated 18.[facility] Allergies No known active allergies Medications * Be aware that medications may not be up to date on this document. Alwaysverify current medications with the patient. amiodarone (Cordarone) 200 MG tablet Take 1 (one) tablet by mouth once daily Active losartan (Cozaar) 100 MG tablet Take 1 (one) tablet by mouth once daily Active rivaroxaban (Xarelto) 20 MG tablet Take by mouth daily with food Active hydrALAZINE (Apresoline) 25 MG tablet Take 1 (one) tablet by mouth 4 times daily Active amLODIPine (Norvasc) 2.5 MG tablet Take 1 (one) tablet by mouth once daily Active atorvastatin (Lipitor) 20 MG tablet Take 1 (one) tablet by mouth once daily Active benzonatate (Tessalon) 100 MG capsule TAKE 1 CAPSULE BY MOUTH THREE TIMES A DAY NEEDED FOR COUGH 3 Active hydroCHLOROthia zide (Hydrodiuril) 25 MG tablet TAKE ONE TABLET (25MG) BY MOUTH ONCE DAILY Active HYDROcodone-paul taminophen ([place]) 5-325 MG tablet Take 1 (one) tablet by mouth every 8 hours as needed For pain. 4 Active oxyBUTYnin CR 24hr (Ditropan-XL) 10 MG tablet Take 1 (one) tablet by mouth once daily as needed Active losartan (Cozaar) 100 MG tablet Take 1 (one) tablet by mouth once daily Active cephalexin (Keflex) 500 MG capsuleIndicati ons:Skin and Skin Structure Infection Take 1 (one) capsule by mouth 3 times daily Reasons: Infection of the Skin and/or Skin Structures 21 capsule 4 Active vitamin D3 (Cholecaciferol ) 125 MCG (5000 UT) tablet Take by mouth. Acti ve Active Problems Problem Noted Date Diagnosed Date Osteopenia 11/25/2023 Presence of stent in coronary artery 11/25/2023 Coronary artery disease invo lving [place] coronary artery of [place] heart without angina pectoris 02/13/2017 History of coronary artery stent placement 02/13 Paroxysmal atrial fibrillation 02/13/2017 Mammographic microcalcification 03/27/2010 Social History Tobacco Use Types Packs/Day Years Used Date Smoking Tobacco: Never Assessed Comments Unknown Sex and Gender Information Value Date Recorded Sex Assigned at Not on file Legal Sex Female 6:[address]/MEDICAL INTERPRETER Gender Identity Not on file Sexual Orientation Not on file Plan of Treatment Health Maintenance Due Date Last Done Comments BONE DENSITY TESTING 1942 DTAP/TDAP/TD VACCINES (1 - Tdap) 1961 PNEUMOCOCCAL VACCINE 50+ (1 of 1 - PCV) 1992 ZOSTER VACCINE (1 of 2) 1992 Respiratory Syncytial Virus (RSV) Vaccine Pt: or over 60 yrs (1 - 1-dose 75+ series) 2017 DEPRESSION SCREENING 05/06/2024 MEDICARE AWV CALENDAR YEAR 2024 COVID-19 VACCINE (1 - 2023-2 5 season) 2025 INFLUENZA VACCINE (#1) 2025 HEPATITIS B VACCINE Aged Out No longe r eligible based on patient's age to complete this topic HIB VACCINE Aged Out No longer eligi ble based on patient's age to complete this topic HPV VACCINE Aged Out No longer eligi ble based on patient's age to complete this topic MENINGOCOCCAL (Group B) VACC INE SHARED DECISION-MAKING Aged Out No longer eligibl e based on patient's age to complete this topic MENINGOCOCCAL GROUPS A/C/Y/W VACCINE Aged Out No longer eligible b ased on patient's age to complete this topic Insurance AETNA MEDICARE ADV Care Teams Apprentice Cosmetologist Relationship Specialty Start Date End Date Ollie Ronquillo MD [address] [place] [address] PCP - General Family Medicine 09/11/23
--- OUTSIDE RECORDS SUMMARY | 2025-03-01 08:42 | XMS_ITS | Clinical Summary ---
Author Organization [facility] Address [address] [place] [address] Phone Care Team Providers Care Instrumentation Manager Name Role Phone Wilman Alaniz MD Primary Care Provider [phone] Allergies No known active allergies Medications ezetimibe-simvas tatin (VYTORIN /) 10-20 mg Oral tablet Take 1 Tab by mouth daily at bedtime. Active bisoprolol-hydro chlorothiazide (ZIAC) 5-6.25 mg Oral tablet Take 1 Tab by mouth daily. Active aspirin (VAL) 81 mg Oral Tab Take 81 mg by mouth daily. Active CALCIUM CARBONATE/VITAMI N D3 (CALCIUM + D ORAL) Take by mouth. Active Irbesartan (AVAPRO) 300 mg Oral tablet Take 300 mg by mouth daily at bedtime. Active Active Problems Patient Care Coordination No te Formatting of this note migh t be different from the original. Primary Care: Wilman Alaniz MD Referring Provider: Sandra [address] [address] [place] [address] Other: Problem Noted Date Diagnosed Date Mammographic microcalcification 03/27/2010 Osteopenia Coronary stent Family History Medical History Relation Name Comments Heart Disease Father Breast Cancer Maternal Aunt age 80 Breast Cancer Maternal Cousin in her 50s Breast Cancer Mother age 97 Heart Disease Sister Relation Name Status Comments Father Maternal Aunt Maternal Cousin Mother Sister Social History Tobacco Use Types Packs/Day Years Used Date Smoking Tobacco: Never Alcohol Use Standard Drinks/Week Comments Yes 0 (1 standard drink = 0.6 oz pur e alcohol) rare Comments No Sex and Gender Information Value Date Recorded Sex Assigned at Not on file Legal Sex Female 5:57 AM MACHINE TRACER Gender Identity Not on file Sexual Orientation Not on file Last Filed Vital Signs Vital Sign Reading Time Taken Comments Blood Pressure 147/75 03/27/2010 11:28 AM MACHINE TRACER Pulse - - Temperature - - Respiratory Rate - - Oxygen Saturation - - Inhaled Oxygen Concentration - - Weight 72.6 kg (160 lb) 03/27/2010 11:28 AM MACHINE TRACER Height 165.1 cm (5' 5) 03/27/2010 11:28 AM MACHINE TRACER Body Mass Index 26.63 03/27/2010 11:28 AM MACHINE TRACER Plan of Treatment Health Maintenance Due Date Last Done Comments DTAP/TDAP/TD VACCINES (1 - Tdap) 1961 PNEUMOCOCCAL VACCINE 50+ YEARS (1 of 1 - PCV) 12/14/18 93 ZOSTER VACCINE (1 of 2) 1992 OSTEOPOROSIS SCREENING 12/15/2007 RSV VACCINE (60+ or ) (1 - 1-dose 75+ series) 2017 INFLUENZA VACCINE (#1) 2024 Insurance MEDICARE PART A AND B [employer] O OPEN ACCESS Care Teams Instrumentation Manager Relationship Specialty Start Date End Date Wilman Alaniz MD [address] [place] [address] PCP - General Family Practice 03/27/10
== END 2025-03-01 08:25 | disposition home or self-care (01) ==
PROVIDERS: PCP Family Medicine; Visit Provider Family Medicine
DX: Z12.31 Encounter for screening mammogram for malignant neoplasm of breast (principal)
CPT/HCPCS: 77063; 77067

== ENCOUNTER 2025-04-07 12:54 | Outpatient (CLI) | payer MEDICARE, SELFPAY ==
[2025-04-07 13:49] LABS: Influenza A QL RT-PCR Negative (Negative); Influenza B QL RT-PCR Negative (Negative); RSV RNA, RT-PCR Negative (Negative); SARS-CoV-2 RNA PCR Positive (Negative)
--- OUTSIDE RECORDS SUMMARY | 2025-04-07 13:59 | XMS_ITS | Encounter Summary ---
Author Organization [facility] Address [address] [place] [address] Care Team Providers Care Hand Spring Repairer Name Role Phone Ollie Ronquillo MD Primary Care Provider [phone] Encounter Details Date Type Department Care Team (Late st Contact Info) Description 08/14/2023 Lab Requisition [facility] - DermPath Lab [address] [facility] [place] [address] Noble Whitt MD [address] [place] [address] Social History Tobacco Use Types Packs/Day Years Used Date Smoking Tobacco: Never Assessed Comments Unknown Sex and Gender Information Value Date Recorded Sex Assigned at Not on file Legal Sex Female 6:21 AM LOOM STARTER Gender Identity Not on file Sexual Orientation Not on file documented as of this encounter Plan of Treatment Not on file documented as of this encounter Procedures Procedure Name Priority Date/Time Associated Diagnosis Comments DERMATOPATHOLOGY Routine 08/13/2023 3:33 AM CDT documented in this encounter Results * DERMATOPATHOLOGY (08/13/2023 3:33 AM CDT) Case Report Dermatopathology Report Case: [id number] Authorizing Provider: Noble Whitt MD Collected: 08/13/2023 03:33 AM Ordering Location: [facility] - Received: 08/15/2023 06:51 AM DermPath [...] characteristic determined by the Dermatopathology Laboratory at [facility], directed by Dr. Jane Reeves. These tests need not be, and therefore are not, approved by the [place] Food and Drug Administration. The tests are used for clinical purposes. Billing Codes Specimen Charges Stain Charges 16144 1 4 1:19 PM CDT DERMATOPATHOLOGY LABORATORY Embedded Images 4 1:19 PM CDT DERMATOPATHOLOGY LABORATORY Pathology/Cytolo gy TISSUE SPECIMEN FROM SKIN / Unknown 08/13/2023 3:33 AM CDT 08/15/2023 6:51 AM CDT Noble Whitt MD LAB - PATHOLOGY/CYTOLOGY ORD ERABLES Final Result DERMATOPATHOLOGY LABORATORY [facility] - Department of Dermatology [address], [address] [phone] documented in this encounter Visit Diagnoses Not on filedocumented in this encounter Care Teams Hand Spring Repairer Relationship Specialty Start Date End Date Ollie Ronquillo MD [address] [place] [address] PCP - General Family Medicine 09/11/23 documented as of this encounter
--- OUTSIDE RECORDS SUMMARY | 2025-04-07 13:59 | XMS_ITS | Clinical Summary ---
Author Organization [facility] Address [address] [facility] [place] [address] Care Team Providers Care Industrial Engineering Intern Name Role Phone Ollie Ronquillo MD Primary Care Provider [phone] Source Comments [facility],non-owned Affiliates and Associated Physician Practices is amultiple site organization consisting of ambulatory clinics and hospital sitesin [place], [place], [place] and [place]. This disclosure is being madepursuant to the Care Everywhere program and may not contain all information available regarding this patient. Last updated 18.[facility] Allergies No known active allergies Medications * [...] BY MOUTH ONCE DAILY Active HYDROcodone-paul taminophen ([place]) 5-325 MG tablet Take 1 (one) tablet [...] artery 11/25/2023 Coronary artery disease invo lving [place] coronary artery of [place] heart without angina pectoris 02/13/2017 History of coronary artery stent placement 02/13 Paroxysmal atrial fibrillation 02/13/2017 Mammographic microcalcification 03/27/2010 Social History Tobacco Use Types Packs/Day Years Used Date Smoking Tobacco: Never Assessed Comments Unknown Sex and Gender Information Value Date Recorded Sex Assigned at Not on file Legal Sex Female 6:21 AM FIRST AID INSTRUCTOR Gender Identity Not on file Sexual Orientation [...] MEDICARE AWV CALENDAR YEAR 2024 COVID-19 VACCINE ( - 2024-2 6 season) 2025 INFLUENZA VACCINE (#1) 2025 HEPATITIS [...] topic Insurance AETNA MEDICARE ADV Care Teams Industrial Engineering Intern Relationship Specialty Start Date End Date Ollie Ronquillo MD [address] [place] [address] PCP - General Family Medicine 09/11/23
--- OUTSIDE RECORDS SUMMARY | 2025-04-07 13:59 | XMS_ITS | Clinical Summary ---
Author Organization [facility] Address [address] [place] [address] Phone Care Team Providers Care Registered Nurse Hh Case Manager Name Role Phone Wilman Alaniz MD Primary Care Provider [phone] Allergies No known active allergies Medications ezetimibe-simvas [...] Care: Wilman Alaniz MD Referring Provider: Sandra [place] [address] [place] [address] Other: Problem Noted Date Diagnosed Date Mammographic [...] on file Legal Sex Female 5:57 AM ETHNOGRAPHIC MATERIALS CONSERVATOR Gender Identity Not on file Sexual Orientation Not on file Last Filed Vital Signs Vital Sign Reading Time Taken Comments Blood Pressure 147/75 03/27/2010 11:28 AM ETHNOGRAPHIC MATERIALS CONSERVATOR Pulse - - Temperature - - Respiratory Rate - - Oxygen Saturation - - Inhaled Oxygen Concentration - - Weight 72.6 kg (160 lb) 03/27/2010 11:28 AM ETHNOGRAPHIC MATERIALS CONSERVATOR Height 165.1 cm (5' 5) 03/27/2010 11:28 AM ETHNOGRAPHIC MATERIALS CONSERVATOR Body Mass Index 26.63 03/27/2010 11:28 AM ETHNOGRAPHIC MATERIALS CONSERVATOR Plan of Treatment Health Maintenance Due Date Last Done Comments DTAP/TDAP/TD VACCINES (1 - Tdap) 1961 PNEUMOCOCCAL VACCINE 50+ YEARS (1 of 1 - PCV) 12/14/18 93 ZOSTER VACCINE (1 of 2) 1992 OSTEOPOROSIS SCREENING 12/15/2007 RSV VACCINE (60+ or ) (1 - 1-dose 75+ series) 2017 INFLUENZA VACCINE (#1) 2024 Insurance MEDICARE PART A AND B [employer] O OPEN ACCESS Care Teams Registered Nurse Hh Case Manager Relationship Specialty Start Date End Date Wilman Alaniz MD [address] [place] [address] PCP - General Family Practice 03/27/10
--- OUTSIDE RECORDS SUMMARY | 2025-04-07 13:59 | XMS_ITS | Clinical Summary ---
Author Organization [facility] [address] Address [address] [place] [address] Care Team Providers Care Slitter Processed Film Name Role Phone Ollie Ronquillo MD Primary [...] Diagnosed Date Coronary artery disease invo lving [place] coronary artery of [place] heart without angina pectoris 02/13/2017 History of [...] on file Legal Sex Female 2:24 AM TRANSCRIPTER Gender Identity Female 02/17/2020 5:00 PM CDT Sexual Orientation Straight 02/17/2020 5: 00 PM CDT Last Filed Vital Signs Vital Sign Reading Time Taken Comments Blood Pressure 120/58 09/21/2024 1:45 PM CDT Pulse 98 09/21/2024 1:45 PM CDT Temperature 36.7 C (98.1 F) 04/10/2023 7:06 PM TRANSCRIPTER Respiratory Rate 18 04/10/2023 7:06 PM TRANSCRIPTER Oxygen Saturation 93% 09/21/2024 1:45 PM CDT [...] Insurance AETNA MEDICARE AETNA MEDICARE Care Teams Slitter Processed Film Relationship Specialty Start Date End Date Ollie Ronquillo MD [address] [facility] [address] [place] [address] PCP - General Family Medicine 02/27/18
== END 2025-04-07 12:55 | disposition home or self-care (01) ==
LOC: ANHLAB 12:55
PROVIDERS: PCP Family Medicine; Visit Provider Physician Assistant
DX: U07.1 COVID-19 (principal)
CPT/HCPCS: 87637